=== PATIENT | female | born 1975 | race American Indian/Alaskan Native ===

== ENCOUNTER 2017-01-27 19:49 | Emergency (ER) | payer MEDICARE ==
[2017-01-27 20:20] VITALS: BP 142/82
[2017-01-27 21:30] LABS: Mean Corpuscular HGB Conc 32 % (30-34); Mean Corpuscular Hemoglobin 29 pg (28-32); Mean Corpuscular Volume 90 fl (79-97); Platelet Count 235 K/mm3 (140-440); Red Blood Count 4.88 M/mm3 (3.65-5.03); Red Cell Distribution Width 14.5 % (13.2-15.2); White Blood Count 9.7 K/mm3 (4.5-11.0)
[2017-01-27 21:47] LABS: Alanine Aminotransferase 13 units/L (7-56); Albumin 4.8 g/dL (3.9-5); Albumin/Globulin Ratio 1.6 %; Alkaline Phosphatase 100 units/L (35-129); Anion Gap 24 mmol/L; BUN/Creatinine Ratio 7; Blood Urea Nitrogen 5 mg/dL (7-17); Calcium 10.1 mg/dL (8.4-10.2); Carbon Dioxide 21 mmol/L (22-30); Glucose 136 mg/dL (65-100); Lipase 17 units/L (13-60); Potassium 3.5 mmol/L (3.6-5.0); Sodium 142 mmol/L (137-145); Total Protein 7.8 g/dL (6.3-8.2)
[2017-01-27 22:33] LABS: Anisocytosis RARE; Basophils % (Manual) 0 % (0.0-1.8); Blastocytes % (Manual) 0 %; Diff Status Complete; Eosinophils % (Manual) 0 % (0.0-4.3); Platelet Estimate Consistent w Auto
== END 2017-01-27 21:32 | disposition left against medical advice (07) ==
LOC: ED 19:49
DX: R53.1 Weakness (principal); Z53.21 Procedure and treatment not carried out due to patient leaving prior to being seen by health care provider
CPT/HCPCS: 36415; 80053; 83690; 84484; 84703; 85007; 85025; 87400; 93005; 93010

== ENCOUNTER 2019-01-12 09:48 | Outpatient (CLI) | payer MEDICARE ==
--- NOTE | 2019-01-12 10:43 | Mammography Report ---
DIGITAL BILATERAL DIAGNOSTIC MAMMOGRAM WITH CAD, 01/12/2019 INDICATION: LEFT BREAST PAIN. The described pain comes and goes with her menses and she is not having pain today. TECHNIQUE: Digital bilateral mammographic imaging was performed. This examination was interpreted with the benefit of Computer-aided Detection analysis. COMPARISON: None. Breast Density: The breasts are extremely dense, which lowers the sensitivity of mammography. FINDINGS: No mass, architectural distortion or suspicious calcifications. IMPRESSION: No mammographic evidence of malignancy. Follow up recommendation: Routine BI-RADS Category 1: Negative. A "normal" or negative report should not discourage follow up or biopsy of a clinically significant f inding. A written summary of these findings will be mailed to the patient. The patient will be entered into a mammography reporting system which will generate a reminder letter for the patient's next appointmen t at the appropriate interval. According to the [employer], yearly mammograms are recommended starting at age 40 and continuing as long as a woman is in good health. Breast MRI is recommended for women with an ángel roximately 20-25% or greater lifetime risk of breast cancer, including women with a strong family his tory of breast or ovarian cancer and women who have been treated for Hodgkin's disease. Signer Name: Duane Mitchell MD Signed: 01/12/2019 10:38 AM Workstation Name: [id number]
== END 2019-01-12 09:49 | disposition home or self-care (01) ==
LOC: SPVWC 09:48
PROVIDERS: ATTEND Surgery
DX: R92.2 Inconclusive mammogram (principal); N64.4 Mastodynia
CPT/HCPCS: 77066

== ENCOUNTER 2019-03-14 16:00 | Emergency (ER) | payer MEDICARE ==
[2019-03-14 16:58] VITALS: BP 147/89
[2019-03-14] MEDS ORDERED: ONDANSETRON 4 MG/2 ML INJ IV ONE (17:01)
[2019-03-14] MEDS ORDERED: SODIUM CHLORIDE 0.9% 1000 ML 1,000 ML IV ONE ×2 (17:01→18:46)
[2019-03-14] MEDS ORDERED: ACETAMINOPHEN 325 MG TAB PO ONE (17:01)
--- NOTE | 2019-03-14 17:03 | Emergency Department Report ---
Chief Complaint: Upper Respiratory Infection Stated Complaint: N/V FLU SYM - HPI History of Present Illness: 43 y/o ill appearing female, nauseas diaphoresis nausea influenza like illness appears ill and sick labs ua xr chest treat symptoms reassess states not Vital Signs 03/14/19 16:57 Temperature 97.6 F Pulse Rate 105 H Respiratory 20 Rate Blood Pressure 147/89 [Left] O2 Sat by Pulse 98 Oximetry - Exam Vital Signs: Vital Signs 03/14/19 16:57 Temperature 97.6 F Pulse Rate 105 H Respiratory 20 Rate Blood Pressure 147/89 [Left] O2 Sat by Pulse 98 Oximetry MSE screening note: Focused history and physical exam performed. Due to findings the following was ordered: ED Disposition for MSE Condition: Stable
[2019-03-14 17:26] LABS: Hematocrit 42.8 % (30.3-42.9); Hemoglobin 14.9 gm/dl (10.1-14.3); Mean Corpuscular HGB Conc 35 % (30-34); Mean Corpuscular Volume 86 fl (79-97); Platelet Count 294 K/mm3 (140-440); Red Blood Count 4.96 M/mm3 (3.65-5.03); Red Cell Distribution Width 14.3 % (13.2-15.2)
[2019-03-14] MEDS ORDERED: FAMOTIDINE 20 MG/2 ML INJ IV ONE (18:46)
[2019-03-14] MEDS ORDERED: METOCLOPRAMIDE 10 MG/2 ML INJ IV ONE (18:46)
[2019-03-14] MEDS ORDERED: diphenhydrAMINE 50 MG/ML VIAL IV ONE (18:46)
[2019-03-14 19:22] LABS: Bacteria,Urine 1+ /HPF (Negative); Bilirubin,Urine NEG (Negative); Blood,Urine NEG (Negative); Color,Urine Yellow (Yellow); Mucus,Urine FEW /HPF; Urobilinogen,Urine < 2.0 mg/dL (<2.0)
--- NOTE | 2019-03-14 19:29 | XRay Report ---
CHEST PA AND LATERAL VIEWS INDICATION: cough weak n/v flu. COMPARISON: None. FINDINGS: Support devices: Appiah rods are seen. Heart: Within normal limits. Lungs/Pleura: No acute pulmonary or pleural findings. There is mild pectus deformity. IMPRESSION: 1. No acute pulmonary or pleural findings. Signer Name: Mao Gruber MD Signed: 03/14/2019 7:25 PM Workstation Name: [id number]
[2019-03-14 19:40] LABS: Alanine Aminotransferase 12 units/L (7-56); Albumin 4.6 g/dL (3.9-5); BUN/Creatinine Ratio 10; Blood Urea Nitrogen 5 mg/dL (7-17); Calcium 9.5 mg/dL (8.4-10.2); Hemolysis Index 5
--- NOTE | 2019-03-14 22:11 | Cat Scan Report ---
CT ABDOMEN AND PELVIS WITH IV CONTRAST INDICATION: abdominal pain. COMPARISON: None available. TECHNIQUE: All CT scans at this facility use dose modulation, automated exposure control, iterative reconstructi on or weight based dosing, when appropriate, to reduce radiation dose to as low as reasonably achieva ble. FINDINGS: Lung Bases: No significant abnormality. Skeletal System: No acute abnormality. ABDOMEN: Liver: No significant abnormality. Gallbladder: No significant abnormality. Bile Ducts: No significant abnormality. Pancreas: No significant abnormality. Spleen: No significant abnormality. Adrenals: No significant abnormality. Right Kidney: No significant abnormality. Left Kidney: No significant abnormality. Upper GI tract: Stomach is mildly distended with fluid. No dilated loops of small bowel. Lymph Nodes: No significant adenopathy. Aorta: No significant abnormality. Additional Findings: No significant abnormality. PELVIS: Colon: No acute abnormality. Colon is relatively collapsed. Urinary Bladder and Distal Ureters: Bladder is relatively decompressed which may account at least in part for mild bladder wall thickening. Appendix: No significant abnormality. Lymph Nodes: No significant adenopathy. Additional Findings: A small incidental left ovarian cyst is noted (axial image 93 of series 2). IMPRESSION: 1. Bladder wall thickening may be due at least in part to relative decompression. Correlate clinical ly for mild cystitis. 2. No bowel obstruction. Additional incidental findings as above. Signer Name: Mao Gruber MD Signed: 03/14/2019 10:07 PM Workstation Name: [id number]
--- NOTE | 2019-03-14 23:18 | Emergency Department Report ---
- General Chief Complaint: Upper Respiratory Infection Stated Complaint: N/V FLU SYM Source: patient Mode of arrival: Ambulatory Limitations: No Limitations - History of Present Illness Initial Comments: Patient is a 43-year-old female with no past medical history who presents to the ED with the complaint of acute onset of persistent nasal and sinus congestion, frontal sinus pressure, dry cough, diffuse body aches and pains, black or appetite, nausea and vomiting and diffuse abdominal pain with subjective fever and chills for the last 24 hours. Patient states that other family members all have similar symptoms but less severe. Patient denies dizziness, chest pain, shortness of breath, dysuria, urinary frequency and urgency, sore throat, syncope, change in vision, vaginal discharge, vaginal bleeding or back pain. MD Complaint: fever, cough, rhinorrhea, nasal congestion, sinus pain, other (nausea and vomiting, abdominal pain) -: Sudden, days(s) (2) Severity: severe Severity scale (0 -10): 7 Quality: sharp, aching Consistency: constant Improves With: nothing Worsens With: nothing Context: sick contacts Associated Symptoms: denies other symptoms, fever, chills, myalgias, headache, rhinorrhea, nasal congestion, cough, abdominal pain, nausea, vomiting. denies: chest pain, shortness of breath, diarrhea, dysuria, rash, confusion, weight loss, epistaxis, hoarseness, ear pain, other Treatments Prior to Arrival: none - Related Data Previous Rx's Medication Instructions Recorded Last Taken Type Ibuprofen [Motrin 600 MG tab] 600 mg PO Q6HR PRN #30 tablet 10/20/12 Unknown Rx Dicyclomine [Bentyl] 20 mg PO Q6H PRN #24 tablet 03/14/19 Unknown Rx Famotidine [Pepcid] 20 mg PO Q12H #30 tablet 03/14/19 Unknown Rx Ibuprofen [Motrin] 400 mg PO Q8H PRN #20 tablet 03/14/19 Unknown Rx Ondansetron [Zofran Odt] 4 mg PO Q6HR PRN #21 tab.rapdis 03/14/19 Unknown Rx Allergies Allergy/AdvReac Type Severity Reaction Status Date / Time No Known Allergies Allergy Unverified 10/17/12 19:57 ED Review of Systems ROS: Stated complaint: N/V FLU SYM Other details as noted in HPI Constitutional: chills, fever, malaise, weakness Eyes: denies: eye pain, eye discharge, vision change ENT: congestion. denies: ear pain, throat pain Respiratory: cough. denies: shortness of breath, wheezing Cardiovascular: denies: chest pain, palpitations, edema, syncope, paroxysmal nocturnal dyspnea Endocrine: no symptoms reported Gastrointestinal: abdominal pain, nausea, vomiting. denies: diarrhea, constipation, hematemesis, hematochezia Genitourinary: denies: urgency, dysuria, discharge Musculoskeletal: denies: back pain, joint swelling, arthralgia Skin: denies: rash, lesions Neurological: denies: headache, weakness, paresthesias Psychiatric: denies: anxiety, depression Hematological/Lymphatic: denies: easy bleeding, easy bruising ED Past Medical Hx - Past Medical History Previous Medical History?: No Hx Hypertension: No Hx Congestive Heart Failure: No Hx Diabetes: No Hx Deep Vein Thrombosis: No Hx Renal Disease: No Hx Sickle Cell Disease: No Hx Seizures: No Hx Asthma: No Hx HIV: No - Surgical History Past Surgical History?: Yes Additional Surgical History: back surgery 1990 - Social History Smoking Status: Current Every Day Smoker Substance Use Type: None - Medications Home Medications: Home Medications Medication Instructions Recorded Confirmed Last Taken Type Ibuprofen [Motrin 600 MG tab] 600 mg PO Q6HR PRN #30 tablet 10/20/12 Unknown Rx Dicyclomine [Bentyl] 20 mg PO Q6H PRN #24 tablet 03/14/19 Unknown Rx Famotidine [Pepcid] 20 mg PO Q12H #30 tablet 03/14/19 Unknown Rx Ibuprofen [Motrin] 400 mg PO Q8H PRN #20 tablet 03/14/19 Unknown Rx Ondansetron [Zofran Odt] 4 mg PO Q6HR PRN #21 tab.rapdis 03/14/19 Unknown Rx ED Physical Exam - General Limitations: No Limitations General appearance: alert, in no apparent distress - Head Head exam: Present: atraumatic, normocephalic, normal inspection - Eye Eye exam: Present: normal appearance, PERRL, EOMI Pupils: Present: normal accommodation - ENT ENT exam: Present: normal exam, normal orophraynx, mucous membranes moist, TM's normal bilaterally, normal external ear exam - Neck Neck exam: Present: normal inspection, full ROM - Respiratory Respiratory exam: Present: normal lung sounds bilaterally. Absent: respiratory distress, wheezes, rales, rhonchi, chest wall tenderness, decreased breath sound s, prolonged expiratory - Cardiovascular Cardiovascular Exam: Present: normal rhythm, tachycardia, normal heart sounds. Absent: systolic murmur, diastolic murmur, rubs, gallop - GI/Abdominal GI/Abdominal exam: Present: soft, normal bowel sounds. Absent: tenderness, guarding, hyperactive bowel sounds, hypoactive bowel sounds, organomegaly - Extremities Exam Extremities exam: Present: normal inspection, full ROM, normal capillary refill - Back Exam Back exam: Present: normal inspection, full ROM. Absent: tenderness, CVA tenderness (R), CVA tenderness (L), muscle spasm, paraspinal tenderness, vertebral tenderness - Neurological Exam Neurological exam: Present: alert, oriented X3, CN II-XII intact, normal gait, reflexes normal - Psychiatric Psychiatric exam: Present: normal affect, normal mood - Skin Skin exam: Present: warm, dry, intact, normal color. Absent: rash ED Course Vital Signs 03/14/19 16:57 Temperature 97.6 F Pulse Rate 105 H Respiratory 20 Rate Blood Pressure 147/89 [Left] O2 Sat by Pulse 98 Oximetry ED Medical Decision Making - Lab Data Result diagrams: 03/14/19 17:05 03/14/19 19:03 - Radiology Data Findings [facility] [address] [place] [address] Cat Scan Report Signed Patient: HANANE BLISS MR# : [id number] : 1975 Acct:[id number] Age/Sex: 43 / F ADM Date: 03/14/19 Loc: ED Attending Dr: Ordering Physician: ASHISH VALENTINO Date of Service: 03/14/19 Procedure(s): CT abdomen pelvis w con Accession Number(s): [id number] cc: ASHISH VALENTINO CT ABDOMEN AND PELVIS WITH IV CONTRAST INDICATION: abdominal pain. COMPARISON: None available. TECHNIQUE: All CT scans at this facility use dose modulation, automated exposure control, iterative reconstruction or weight based dosing, when appropriate, to reduce radiation dose to as low as reasonably achievable. FINDINGS: Lung Bases: No significant abnormality. Skeletal System: No acute abnormality. ABDOMEN: Liver: No significant abnormality. Gallbladder: No significant abnormality. Bile Ducts: No significant abnormality. Pancreas: No significant abnormality. Spleen: No significant abnormality. Adrenals: No significant abnormality. Right Kidney: No significant abnormality. Left Kidney: No significant abnormality. Upper GI tract: Stomach is mildly distended with fluid. No dilated loops of small bowel. Lymph Nodes: No significant adenopathy. Aorta: No significant abnormality. Additional Findings: No significant abnormality. PELVIS: Colon: No acute abnormality. Colon is relatively collapsed. Urinary Bladder and Distal Ureters: Bladder is relatively decompressed which may account at least in part for mild bladder wall thickening. Appendix: No significant abnormality. Lymph Nodes: No significant adenopathy. Additional Findings: A small incidental left ovarian cyst is noted (axial image 93 of series 2). IMPRESSION: 1. Bladder wall thickening may be due at least in part to relative dec ompression. Correlate clinically for mild cystitis. 2. No bowel obstruction. Additional incidental findings as above. Signer Name: Mao Gruber MD Signed: 03/14/2019 10:07 PM Workstation Name: [id number] Transcribed By: ROLANDO Dictated By: Mao Gruber MD Electronically Authenticated By: Mao Gruber MD Signed Date/Time: 03/14/192206 DD/ 01 TD/TT: Findings [facility] [address] [place] [address] XRay Report Signed Patient: HANANE BLISS MR# : [id number] : 1975 Acct:[id number] Age/Sex: 43 / F ADM Date: 03/14/19 Loc: ED Attending Dr: Ordering Physician: AZ JOHNSON MD Date of Service: 03/14/19 Procedure(s): XR chest routine 2V Accession Number(s): [id number] cc: AZ JOHNSON MD Fluoro Time In Minutes: CHEST PA AND LATERAL VIEWS INDICATION: cough weak n/v flu. COMPARISON: None. FINDINGS: Support devices: Appiah rods are seen. Heart: Within normal limits. Lungs/Pleura: No acute pulmonary or pleural findings. There is mild pectus deformity. IMPRESSION: 1. No acute pulmonary or pleural findings. Signer Name: Mao Gruber MD Signed: 03/14/2019 7:25 PM Workstation Name: [id number] Transcribed By: ROLANDO Dictated By: Mao Gruber MD Electronically Authenticated By: Mao Gruber MD Signed Date/Time: 03/14/191924 DD/ 23 TD/TT: - Medical Decision Making This is a 43-year-old -[place] female who presented to the ED with f lulike symptoms characterized by persistent nausea and vomiting, diffuse abdominal pain, nasal and sinus condition, dry cough, diffuse body aches and pains, generalized weakness, and lack of appetite for 2 days. In the ED, patient is alert and oriented 3 discussion and distress but continues to have nausea and vomiting in the room during the physical exam. Laboratory results were reviewed and are nonactionable including urinalysis, and rapid influenza tests. Chest x-ray shows no acute cardiopulmonary monitors on pneumonitis. Abdomen pelvis CT scan with contrast shows no acute pathology or abnormalities in the abdomen and pelvis. Patient was treated in the ED with normal saline 2 L IV bolus, patient also received antiemetics Reglan with Benadryl, and Zofran. Patient was also treated with antacids and on reevaluation, patient's pain is well-controlled with medications. Patient past oral fluid challenge in the ED and felt better. Patient's symptoms are likely due to a viral syndrome. Patient was discharged home on medications and advised to maintain a clear liquid diet for 12-24 hours and follow-up with her primary care physician in 5-7 days for reevaluation or return to the ED immediately if symptoms get worse. - Differential Diagnosis Gastroenteritis; Flu; Gastritis; URI; UTI; Bronchitis Critical care attestation.: If time is entered above; I have spent that time in minutes in the direct care of this critically ill patient, excluding procedure time. ED Disposition Clinical Impression: Flu-like symptoms, Nausea and vomiting in adult, Acute upper respiratory infection Abdominal pain Qualifiers: Abdominal location: generalized Qualified Code(s): R10.84 - Generalized abdominal pain Disposition: TO HOME OR SELFCARE Is pt being admited?: No Does the pt Need Aspirin: No Condition: Stable Instructions: Acute Nausea and Vomiting (ED), Gastroenteritis (ED), Upper Respiratory Infection (ED), Viral Syndrome (ED) Additional Instructions: Maintain a clear liquid diet for 12-24 hours, take medications as advised with food, drink plenty of fluids and follow-up with your primary care physician 5-7 days for reevaluation. Return to the emergency department immediately if his symptoms get worse. Prescriptions: Dicyclomine [Bentyl] 20 mg PO Q6H PRN #24 tablet PRN Reason: Pain , Severe (7-10) Ibuprofen [Motrin] 400 mg PO Q8H PRN #20 tablet PRN Reason: Pain , Severe (7-10) Famotidine [Pepcid] 20 mg PO Q12H #30 tablet Ondansetron [Zofran Odt] 4 mg PO Q6HR PRN #21 tab.rapdis PRN Reason: Nausea Referrals: DAX GROVER MD [Staff Physician] - 3-5 Days Forms: Work/School Release Form(ED) Time of Disposition: 23:44 Print Language: ARABIC
== END 2019-03-14 23:55 | disposition home or self-care (01) ==
LOC: ED 16:00
DX: R10.84 Generalized abdominal pain (principal); R11.2 Nausea with vomiting, unspecified; J06.9 Acute upper respiratory infection, unspecified; J11.1 Influenza due to unidentified influenza virus with other respiratory manifestations; F17.200 Nicotine dependence, unspecified, uncomplicated; Z98.890 Other specified postprocedural states; Z79.899 Other long term (current) drug therapy
CPT/HCPCS: 36415; 71046; 74177; 80053; 81001; 82550; 83690; 83735; 84484; 84702; 85027; 87400; 96361; 96374; 96375; 99285; J1200; J2405; J2765; J7030; Q9967